=== PATIENT | male | born 1940 | race Caucasian/White ===

== ENCOUNTER 2017-09-12 14:11 | Inpatient (IN) | payer MEDICARE, OTHER, SELFPAY ==
[2017-09-12] VITALS (9 sets, daily range): BP systolic 105–151; BP diastolic 63–74; PULSE 69–96; RESP 14–23; TEMP 36.7–37.7; O2SAT 93–96; BMI 37.9; BMI 37.5; BMI 37.6
--- NOTE | 2017-09-12 14:54 | EKG12_ITS ---
Test Reason : FEVER Blood Pressure : / mmHG Vent. Rate : 097 BPM Atrial Rate : 097 BPM P-R Int : 148 ms QRS Dur : 098 ms QT Int : 330 ms P-R-T Axes : 062 -60 052 degrees QTc Int : 419 ms Normal sinus rhythm Left axis deviation Abnormal ECG Confirmed by MADDIE EVANS, ROBBIN ([id number]), acquisition editor CORI MARLOW ([id number]) on 09/15/2017 3:52:23 PM Referred By: MARTITA Confirmed By:ROBBIN PERKINS MD
--- NOTE | 2017-09-12 15:07 | ED.DCSUM_ITS ---
- ER Visit Summary Date of Service: 09/12/17 Chief Complaint: Fever History of Present Illness: The patient is a 77 M resents to the emergency department with fever. Patient symptoms began today. He is down here visiting family. The patient lives in [place]. He was at lunch and began to have with the family described as tremors. He did appear to be Reiger's from his fever. He denies any symptoms. He said no cough, abdominal pain, vision change , dysuria. He has had some myalgias and arthralgias. Family states that he has been outside working for the past 2 days. He did get mosquito bites but no other exposures. Patient is otherwise healthy. He does have a history of hypertension and BPH, but is on no anticoagulants. Has been compliant with his medications. He denies any other symptoms. Physical Examination: Vital signs reviewed General: Well-nourished, well-developed Head: Normocephalic, atraumatic Eyes: Pupils equal and reactive, extraocular muscles intact Neck, supple, no lymphadenopathy Heart: Regular rate and rhythm Respiratory: No distress, clear bilaterally Abdomen: Soft, nontender, nondistended, no peritoneal signs Back: Nontender Extremities: Nontender, no edema, no cords Skin: Normal color no rash Neuro: Alert and oriented, no focal or lateralizing deficits Test Results: [] Emergency Department Course and Treatment: The patient presents to the emergency department with a fever. He was also hypoxic. The patient had a pulse ox of 88%. He really no focal change in lung sounds. I did obtain a sepsis workup. Patient has no significant leukocytosis. However, he does have an elevated lactate. His EKG shows sinus rhythm without ischemic change. With his normal chest x-ray and hypoxia, I did obtain a CT of his chest. There is no large infiltrate. I am concerned that the patient has underlying infection. He is covered with IV Levaquin. Blood cultures were obtained. Given his hypoxia and lactic acidosis, along with his fever the patient does likely have sepsis. I do feel that he will require admission for IV hydration and continued antibiotic coverage. Patient was discussed with the hospitalist. Treatment Plan: [] Disposition: Admission Impression:. Sepsis 2. Hypoxia This note was generated with amBXation software. It may contain incorrect words, spelling, and punctuation that were not noted in review of the chart prior to signing ED Disposition - Plan for ED Patient: Chief Complaint: General Illness Referrals: [facility] Doctor,Out of [Primary Care Provider] -
[2017-09-12 15:10] LABS: Bacteria 0 SEEN /hpf (None Seen); Mucous, Urine 0 SEEN /hpf (<or=2+)
[2017-09-12 15:17] LABS: Color, Urine Yellow (Yellow); Glucose, Dipstick Normal (Normal); Ketone-Dipstick 5 mg/dl (Negative); Leukocyte Esterase-Dipstick 25 /ul (Negative); Nitrite-Dipstick Negative (Negative); Occult Blood-Urine Negative /ul (Negative); Protein-Dipstick Negative (Negative); Urine Bilirubin Dipstick Negative (Negative); Urine Clarity Clear (Clear); Urine Urobilinogen Normal (Normal)
[2017-09-12] MEDS: 0.9% Normal Saline 1,000 ML 1000 ML IV (15:22)
[2017-09-12] MEDS: Acetaminophen 500 MG Tablet 1000 MG PO (15:26)
--- NOTE | 2017-09-12 15:45 | RAD_ITS ---
STUDY: X-RAY CHEST REASON FOR EXAM: Male, 77 years old. Cough TECHNIQUE: Frontal and lateral views of the chest COMPARISON: None. FINDINGS: The lungs are clear. There are no pleural effusions. There is no pneumothorax. The heart is normal in size. There are degenerative changes noted in the spine. RAD/Chest PA and Lateral IMPRESSION: No acute thoracic pathology. Electronically Signed: Mendoza Alarcon, at 16:07 EDT Tel , Service support ,
[2017-09-12 15:47] LABS: Absolute Lymphocyte Count 0.39 X10^3/ul (0.83-4.51); Absolute Neutrophil Count 5.2 X10^3/uL (2.0-7.7); Basophil# 0.03 X10^3/uL; Basophil% 0.5 % (0-1); Eosinophil# 0.08 X10^3/uL; Eosinophils% 1.4 % (0-5); Hematocrit 40.7 % (40-54); Hemoglobin 13.6 g/dl (13.0-16.5); Lymphocyte # 0.39 X10^3/ul (4.0); Lymphocyte % 6.6 % (19-41); Mean Corp Hgb Conc 33.4 g/gl (32-36); Mean Corpuscular Hgb 29.9 pg (27.0-32.0); Mean Corpuscular Volume 89.5 fL (80-94); Monocyte# 0.17 X10^3/uL; Monocyte% 2.9 % (0-10); Neutrophil # 5.21 X10^3/uL (2.7-7.7); Neutrophil % 88.4 % (47-70); Platelet Count 168 K/mm3 (150-450); RBC Distribution Width CV 14.6 % (11.6-14.6); Red Blood Count 4.55 M/mm3 (4.6-6.2); White Blood Count 5.9 K/mm3 (4.4-11.0)
[2017-09-12 15:49] LABS: Red Blood Cells-Urine 0-5 SEEN /hpf (0-5); Squamous Epithelial Cells - UA 0-5 SEEN /hpf (0-5); White Blood Cells 0-5 SEEN /hpf (0-5)
[2017-09-12 15:53] LABS: Albumin, Serum 3.8 g/dL (3.2-5.0); BUN 26 mg/dL (7-18); BUN/Creat Ratio 18.1 RATIO (10-20); Creatinine, Serum 1.44 mg/dL (0.70-1.30); EST Glomerular Filtration Rate 51 mL/min (>60); Est Glom Filt Rate - Afr Amer 61 mL/min (>60); Estimated Creatinine Clearance 40.16 ml/min; Globulin 3.6 g/dL (2.2-4.2); Glucose 134 mg/dL (74-106); Protein, Total 7.4 g/dL (6.4-8.2)
[2017-09-12 15:54] LABS: ALB/GLOB Ratio 1.1 RATIO (0.9-2.4); AST(SGOT) 36 U/L (15-37); Alanine Aminotransfer ALT/SGPT 58 U/L (16-61); Alkaline Phosphatase 54 U/L (45-117); Anion Gap 8 (5-15); Calcium,Total 8.6 mg/dL (8.5-10.1); Chloride 107 mmol/L (98-107); Potassium 4.1 mmol/L (3.5-5.1); Sodium Level 140 mmol/L (136-145)
[2017-09-12 15:56] LABS: Differential Indicated SCAN CRITERIA MET; POSITIVE COUNT NO; POSITIVE DIFFERENTIAL YES; POSITIVE MORPHOLOGY NO
--- NOTE | 2017-09-12 16:15 | CT_ITS ---
STUDY: CT CHEST WITH CONTRAST REASON FOR EXAM: Male, 77 years old. Cough fever RADIATION DOSAGE (If Supplied By Facility): CTDIvol = ( 15.06 ) mGy, DLP = ( 745.11 ) mGycm TECHNIQUE: Transaxial imaging was performed following intravenous administration of 100 ml of Isovue 300 contrast material. Individualized dose optimization techniques were used for this CT. COMPARISON: None. FINDINGS: There is hyperinflation of the lungs consistent with chronic obstructive lung disease (COPD). There is mild bilateral lower lobe atelectasis. No infiltrate. There is no demonstrated pleural abnormality. Normal heart and pericardium. There is heterogeneous enhancement of the thyroid gland. Normal hilar regions. Normal enhanced pulmonary arteries. The exam is not a pulmonary embolism study. There is atherosclerotic calcification of the aortic arch with tortuosity and elongation of the aortic arch and descending thoracic aorta. There are multi-level degenerative changes of the thoracic spine. There is fatty infiltration of the liver. There is a small hiatal hernia. There is colonic diverticulosis. CT/Chest WITH Contrast IMPRESSION: There is chronic obstructive pulmonary disease. There is heterogeneous enhancement of the thyroid gland. Electronically Signed: Key Jade MD at 16:52 EDT , Service support ,
[2017-09-12 16:19] LABS: Lactic Acid 2.3 mmol/L (0.4-2.0)
[2017-09-12 16:27] LABS: Differential Comment SCANNED
[2017-09-12] MEDS: levoFLOXacin IV 750 MG/150 ML BAG 100 MG IV (16:43)
--- NOTE | 2017-09-12 18:04 | HP.PCM_ITS ---
Problem List (1) BPH (benign prostatic hyperplasia) Status: Chronic (2) HTN (hypertension) Status: Chronic (3) Arrhythmia Status: Chronic (4) GERD (gastroesophageal reflux disease) Status: Acute History of Present Illness Date of Admission: 09/12/17 Chief Complaint: Fever and shakes This is a 77 M past medical history of BPH, essential hypertension, ELIOT was admitted to the emergency room due to fever shakes. He is visiting family from the [facility] area. He had lites today with family and they started having fever and had shakes. Continue emergency room for evaluation. he was noted to be hypoxic, he was suspected of having an infection, chest x-ray and urinalysis were normal, a CT scan was also obtained that showed no evidence of consolidation, pleural effusion or congestion. The patient also reported abdominal discomfort this morning, he felt he had to vomit, he denied any diarrhea or constipation. His Lactate was mildly elevated at 2.3, he was placed on supplemental oxygen and given a dose of Levaquin we are placing him in the hospital for further management. r Past Medical History Past Medical History (Chronic Problems): Chronic Problems BPH (benign prostatic hyperplasia) (Chronic) HTN (hypertension) (Chronic) Arrhythmia (Chronic) Allergies bee pollen Allergy (Verified 09/12/17 14:14) Anaphylaxis Home Medications: Ambulatory Orders Medication Instructions Recorded Aspirin [Aspirin, Baby] 81 mg PO DAILY@0800 09/12/17 Doxazosin Mesylate [Cardura] 2 mg PO DAILY 09/12/17 Escitalopram Oxalate [Lexapro] 10 mg PO DAILY 09/12/17 Finasteride [Proscar] 5 mg PO DAILY 09/12/17 Metoprolol Tartrate [Lopressor 12.5 mg PO BID 09/12/17 (Beta Reginald)] Niacinamide [Niacin] 1,000 mg PO DAILY 09/12/17 Olmesartan Medoxomil [Benicar] 40 mg PO DAILY 09/12/17 Omeprazole [Omeprazole] 20 mg PO DAILY 09/12/17 Smoking Status: Former smoker Review of Systems Comment: All Systems were reviewed with pertinent positives mentioned in the HPI above. VTE Information - Inpt Only VTE Present on Admission: No VTE Mechan Device Prophylaxis: SCD's VTE Pharm Prophylaxis ordered?: Yes Patient Problems: Active and Suspected Problems GERD (gastroesophageal reflux disease) (Acute) - Physical Exam Vital Signs Temp Pulse Resp BP Pulse Ox 99.8 F H 91 18 123/63 H 95 09/12/17 16:55 09/12/17 16:55 09/12/17 16:55 09/12/17 16:55 09/12/17 16:55 Oxygen Flow Rate (L/min) 2 Oxygen Delivery Method Nasal Cannula Weight: 109.9 kg Body Mass Index (BMI) 37.9 Laboratory Tests Past 24 Hrs 09/12/17 09/12/17 09/12/17 15:00 15:15 15:15 WBC 5.9 RBC 4.55 L Hgb 13.6 Hct 40.7 MCV 89.5 MCH 29.9 MCHC 33.4 RDW 14.6 RDW Differential 48.0 H Plt Count 168 MPV 10.0 Immature Gran % (Auto) 0.200 Neut % (Auto) 88.4 H Lymph % (Auto) 6.6 L Cochran % (Auto) 2.9 Eos % (Auto) 1.4 Baso % (Auto) 0.5 Absolute Neuts (auto) 5.2 Absolute Lymphs (auto) 0.39 L Total Counted Not Reportable Differential Comment SCANNED Sodium 140 Potassium 4.1 Chloride 107 Carbon Dioxide 25.0 Anion Gap 8 BUN 26 H Creatinine 1.44 H Estim Creat Clear Calc 40.16 Est GFR (MDRD) Af Amer 61 Est GFR (MDRD) Non-Af 51 L BUN/Creatinine Ratio 18.1 Glucose 134 H Lactic Acid Calcium 8.6 Total Bilirubin 1.20 H AST 36 ALT 58 Alkaline Phosphatase 54 Total Protein 7.4 Albumin 3.8 Globulin 3.6 Albumin/Globulin Ratio 1.1 Urine Color Yellow Urine Clarity Clear Urine pH 5.0 Ur Specific Converse 1.020 Urine Protein Negative Urine Glucose (UA) Normal Urine Ketones 5 H Urine Occult Blood Negative Urine Nitrite Negative Urine Bilirubin Negative Urine Urobilinogen Normal Ur Leukocyte Esterase 25 H Urine RBC 0-5 SEEN Urine WBC 0-5 SEEN Ur Squamous Epith Cells 0-5 SEEN Urine Bacteria 0 SEEN Urine Mucus 0 SEEN 09/12/17 15:15 WBC RBC Hgb Hct MCV MCH MCHC RDW RDW Differential Plt Count MPV Immature Gran % (Auto) Neut % (Auto) Lymph % (Auto) Cochran % (Auto) Eos % (Auto) Baso % (Auto) Absolute Neuts (auto) Absolute Lymphs (auto) Total Counted Differential Comment Sodium Potassium Chloride Carbon Dioxide Anion Gap BUN Creatinine Estim Creat Clear Calc Est GFR (MDRD) Af Amer Est GFR (MDRD) Non-Af BUN/Creatinine Ratio Glucose Lactic Acid 2.3 H Calcium Total Bilirubin AST ALT Alkaline Phosphatase Total Protein Albumin Globulin Albumin/Globulin Ratio Urine Color Urine Clarity Urine pH Ur Specific Converse Urine Protein Urine Glucose (UA) Urine Ketones Urine Occult Blood Urine Nitrite Urine Bilirubin Urine Urobilinogen Ur Leukocyte Esterase Urine RBC Urine WBC Ur Squamous Epith Cells Urine Bacteria Urine Mucus Assessment/Plan All Active Problems GERD (gastroesophageal reflux disease) (Acute) 1. Fever of unclear etiology; blood cultures have been sent, the patient received empiric antibiotic with Levaquin in the emergency room. We will continue to monitor. 2. Acute Respiratory failure with hypoxia; likely due to acute bronchitis with bronchospasm. Would continue on bronchodilator therapy ,antibiotics and oral steroids 3. Renal insufficiency, chronicity unknown, the patient denies chronic kidney disease, I would treat this as acute kidney injury with IV hydration and repeat renal parameters in a.m. 4. Mild lactic acidosis; I did not feel this patient has sepsis, this is most likely due to hypoxia, we will repeat lactate level in 4 hours. 5. BPH; we will continue his home medications as they are. 6. ELIOT; continue nightly CPAP 7. History of cardiac 'arrhythmia'; he is on beta blockers 8. DVT prophylaxis with Lovenox Code Visit Inpatient E&M: 26505 Init Hosp L3
[2017-09-12] MEDS: 0.9% Normal Saline 1,000 ML 75 ML IV (19:52)
[2017-09-12 19:58] LABS: Reflex Lactate? Y
[2017-09-13] VITALS (13 sets, daily range): BP systolic 124–159; BP diastolic 59–87; PULSE 63–75; RESP 14–16; TEMP 36.7–37.4; O2SAT 93–97
[2017-09-13] MEDS: Piperacil/Tazobactam 3.375 GM/50 ML ML IV ×4 (01:08→22:11)
--- NOTE | 2017-09-13 04:23 | PCM.RX.CS ---
Consult Pharmacy has been consulted to manage selected antiobiotic: Vancomycin Type of Consult: New start Suspected Infection: Other Prior Doses of Antibiotics Received/Current Regimen: Medications Vancomycin HCl 1,500 mg/ (Sodium Chloride) 530 mls @ 250 mls/hr IV Q24H MARGARITO Vancomycin HCl 1,750 mg/ (Sodium Chloride) 535 mls @ 260 mls/hr IV X1 ONE Stop: 09/13/17 05:03 Last Admin: 09/13/17 03:50 Dose: 260 mls/hr Labs: Sodium 140 mmol/L (136-145) 09/12/17 15:15 Potassium 4.1 mmol/L (3.5-5.1) 09/12/17 15:15 Chloride 107 mmol/L (98-107) 09/12/17 15:15 Carbon Dioxide 25.0 mmol/L (21.0-32.0) 09/12/17 15:15 Anion Gap 8 (5-15) 09/12/17 15:15 BUN 26 mg/dL (7-18) H 09/12/17 15:15 Creatinine 1.44 mg/dL (0.70-1.30) H 09/12/17 15:15 Est GFR (MDRD) Af Amer 61 mL/min (>60) 09/12/17 15:15 Est GFR (MDRD) Non-Af 51 mL/min (>60) L 09/12/17 15:15 BUN/Creatinine Ratio 18.1 RATIO (10-20) 09/12/17 15:15 Glucose 134 mg/dL (74-106) H 09/12/17 15:15 Weight used for dosin.9 kg Estimated Creatinine Clearance: 40 Goal Trough: 10-15 mcg/mL Pharmacy Plan for Drug Dosing: Pharmacy Service will continue to monitor and adjust dosing as required. Follow-Up Labs: Trough Vancomycin Labs to be done on [date and time ordered]: 09/15/17 @9771
[2017-09-13 05:45] LABS: Absolute Lymphocyte Count 0.89 X10^3/ul (0.83-4.51); Absolute Neutrophil Count 4.8 X10^3/uL (2.0-7.7); Basophil# 0.02 X10^3/uL; Basophil% 0.3 % (0-1); Eosinophil# 0.08 X10^3/uL; Eosinophils% 1.2 % (0-5); Hematocrit 36.9 % (40-54); Lymphocyte # 0.89 X10^3/ul (4.0); Lymphocyte % 13.3 % (19-41); Mean Corp Hgb Conc 32.5 g/gl (32-36); Mean Corpuscular Hgb 28.9 pg (27.0-32.0); Mean Corpuscular Volume 88.9 fL (80-94); Mean Platelet Vol. 10.2 fl (6.2-12.0); Monocyte# 0.85 X10^3/uL; Monocyte% 12.7 % (0-10); Neutrophil # 4.84 X10^3/uL (2.7-7.7); Neutrophil % 72.5 % (47-70); Platelet Count 133 K/mm3 (150-450); RBC Distribution Width CV 14.9 % (11.6-14.6); RBC Distribution Width SD 48.4 fl (35.1-43.9); Red Blood Count 4.15 M/mm3 (4.6-6.2); White Blood Count 6.7 K/mm3 (4.4-11.0)
[2017-09-13] MEDS: 0.9% Normal Saline 1,000 ML 75 ML IV ×2 (05:45→22:20)
--- NOTE | 2017-09-13 06:00 | ECHOD_ITS ---
Reason For Study: ARRHYTHMIA Procedure This was a 2D Doppler, Color Flow transthoracic echocardiogram. The study was technically difficult. Exam performed portable in patient room. Left Ventricle Normal LV size. Mild concentric left ventricular hypertrophy. Left ventricular systolic function is normal. The estimated ejection fraction is 55 %. Transmitral diastolic flow velocities suggest mild (stage 1) diastolic dysfunction (reversed pattern). No regional wall motion abnormalities noted. Tricuspid Valve Normal tricuspid valve. Mild (1+) tricuspid valve insufficiency. Pulmonary artery systolic pressure is 44 mmHg. Pulmonic Valve Normal pulmonic valve. Great Vessels Mildly dilated aortic root. The pulmonary artery is normal size. Normal inferior vena cava. Pericardium/Pleural No pericardial effusion. MMode/2D Measurements & Calculations LVIDd: 5.2 cm IVSd: 1.2 cm LVOT diam: 2.0 cm LVIDs: 3.9 cm LVPWd: 1.2 cm LVOT area: 3.3 cm2 FS: 25.2 % Ao root diam: 4.0 cm LAV(MOD-bp): 53.3 ml LA A4 area: 15.2 cm2 ACS: 1.1 cm LAV(MOD-bp) Indexed: 24.4 ml/m2 LAV(MOD-sp2): 65.9 ml LAV(MOD-sp4): 35.8 ml RA A4 area: 15.0 cm2 Time Measurements MV dec time: 0.26 sec Doppler Measurements & Calculations MV E max luis e: 77.8 cm/sec Lat Peak E' Luis E: 9.9 cm/sec Med Peak E' Luis E: 5.0 cm/sec MV A max luis e: 93.2 cm/sec E/E' lat: 7.9 E/E' med: 15.4 MV E/A: 0.83 MV V2 max: 112.7 cm/sec MV P1/2t max luis e: 99.2 cm/sec Ao V2 max: 231.8 cm/sec MV max P.1 mmHg MV P1/2t: 103.7 msec Ao max P.5 mmHg MV V2 mean: 57.8 cm/sec MV dec slope: 280.1 cm/sec2 Ao V2 mean: 154.4 cm/sec MV mean P.5 mmHg MVA(P1/2t): 2.1 cm2 Ao mean P.8 mmHg MV V2 VTI: 32.3 cm Ao V2 VTI: 51.5 cm MVA(VTI): 1.9 cm2 SARAH(I,D): 1.2 cm2 SARAH(V,D): 1.1 cm2 LV V1 max: 78.1 cm/sec SV(LVOT): 60.9 ml PA V2 max: 83.5 cm/sec LV V1 max P.4 mmHg LV V1 mean P.3 mmHg LV V1 mean: 53.3 cm/sec LV V1 VTI: 18.7 cm TR max luis e: 313.7 cm/sec TR max P.4 mmHg Interpretation Summary Normal LV size. Mild concentric left ventricular hypertrophy. Left ventricular systolic function is normal. The estimated ejection fraction is 55 %. Transmitral diastolic flow velocities suggest mild (stage 1) diastolic dysfunction (reversed pattern). Mildly dilated aortic root. Pulmonary artery systolic pressure is 44 mmHg. Ordering Physician: OSCAR PELAEZ Performed By: Vin Yip RCS
[2017-09-13 06:25] LABS: POSITIVE COUNT NO; POSITIVE DIFFERENTIAL NO; POSITIVE MORPHOLOGY NO
--- NOTE | 2017-09-13 09:28 | PN_ITS ---
Patient Problems: Active and Suspected Problems GERD (gastroesophageal reflux disease) (Acute) Subjective: This 77-year-old gentleman who presented with fevers. Has been admitted to a monitored bed where he is currently undergoing evaluation cultures so far positive for strep pneumo in the bladder Objective: GENERAL: cooperative HEENT: Clear conjunctiva, NECK; supple, normal thyroid, CHEST: Diminished to auscultation bilaterally, HEART: Regular S1 S2, no audible murmurs ABDOMEN: soft, non-tender, normoactive bowel sounds, RECTAL: deferred EXTREMITIES: No edema, no clubbing, no cyanosis. 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 SKIN: No Rash Vitals/I&O's: Vital Signs Temp Pulse Resp BP Pulse Ox 98.2 F 65 16 149/74 H 93 09/13/17 08:33 09/13/17 08:33 09/13/17 08:33 09/13/17 08:33 09/13/17 08:33 Oxygen Flow Rate (L/min) 94 Oxygen Delivery Method Room Air Weight: 108.9 kg Body Mass Index (BMI) 37.5 Intake and Output for Last 24 Hours 09/11/17 09/12/17 09/13/17 23:59 23:59 23:59 Intake Total 685 / 685 913.8 / 913.8 Balance 685 / 685 913.8 / 913.8 Laboratory Results 09/12/17 20:55: Lactic Acid 2.0 09/13/17 05:00: WBC 6.7, RBC 4.15 L, Hgb 12.0 L, Hct 36.9 L, MCV 88.9, MCH 28.9 , MCHC 32.5, RDW 14.9 H, RDW Differential 48.4 H, Plt Count 133 L, MPV 10.2, Immature Gran % (Auto) 0.000, Neut % (Auto) 72.5 H, Lymph % (Auto) 13.3 L, Bowie % (Auto) 12.7 H, Eos % (Auto) 1.2, Baso % (Auto) 0.3, Absolute Neuts (auto) 4.8 , Absolute Lymphs (auto) 0.89, Total Counted Not Reportable Current Medications Aspirin (Aspirin, Baby) 81 mg PO DAILY@0800 [facility] Doxazosin Mesylate (Cardura) 2 mg PO QHS [facility] Last Admin: 09/12/17 22:32 Dose: Not Given Enoxaparin Sodium (Lovenox) 40 mg SC DAILY [facility] Escitalopram Oxalate (Lexapro) 10 mg PO DAILY [facility] Finasteride (Proscar) 5 mg PO DAILY [facility] Sodium Chloride () 1,000 mls @ 75 mls/hr IV .[id number] [facility] Stop: 09/13/17 23:59 Last Admin: 09/13/17 05:45 Dose: 75 mls/hr Piperacillin Sod/Tazobactam Sod (Zosyn) 3.375 gm in 50 mls @ 12.5 mls/hr IV Q8 [facility] Last Admin: 09/13/17 05:45 Dose: 12.5 mls/hr Vancomycin HCl 1,500 mg/ (Sodium Chloride) 530 mls @ 250 mls/hr IV Q24H [facility] Losartan Potassium (Cozaar) 100 mg PO DAILY [facility] Metoprolol Tartrate (Lopressor (Beta Reginald)) 12.5 mg PO BID [facility] Last Admin: 09/12/17 22:33 Dose: Not Given Niacin (Niaspan) 1,000 mg PO DAILY [facility] Pantoprazole Sodium (Protonix) 20 mg PO DAILY [facility] Sodium Chloride () 5 - 30 ml IV UD PRN PRN Reason: SALINE FLUSH Medical Necessity - Tobacco Use Smoking Status: Former smoker Assessment/Plan All Active Problems GERD (gastroesophageal reflux disease) (Acute) This 77-year-old gentleman who presented with fevers. Has been admitted to a monitored bed where he is currently undergoing evaluation cultures so far positive for strep pneumo in the bladder 1. Bacteremia? Lung source patient grew strep pneumo in the blood as well as gram-positive and gram-negative rods currently on broad-spectrum antibiotic therapy with Levaquin. Ultrasound of gallbladder ordered for subsequent evaluation with consultation placed infectious disease 2. Acute hypoxic respiratory failure secondary to bronchitis in addition to above antibiotics patient was placed on bronchodilator therapy as well as oral steroids 3. Acute kidney injury secondary to dehydration on fluids resolved 4. Obstructive sleep apnea patient is on CPAP at night 5. Hypertension; did continue patient home medications with plans to adjust doses if needed 6. BPH patient is on Proscar 7. DVT prophylaxis on Lovenox Microbiology 09/12/17 16:10 Blood Culture (Wb) - Left Hand Bacteria Detection (PCR) - Preliminary Strep not Strep pneumo 09/12/17 16:10 Blood Culture (Wb) - Left Hand Blood Culture - Preliminary 09/12/17 15:15 Blood Culture (Wb) - Anticubital Left Blood Culture - Preliminary Clinical Impression(s) from Imaging Studies Chest X-Ray 09/12/17 15:45 IMPRESSION: No acute thoracic pathology. Electronically Signed: Mendoza Alarcon, at 16:07 EDT Tel , Service support , Chest CT 09/12/17 16:15 IMPRESSION: There is chronic obstructive pulmonary disease. There is heterogeneous enhancement of the thyroid gland. Electronically Signed: Key Jade MD at 16:52 EDT , Service support , Gallbladder Ultrasound 09/13/17 11:00 IMPRESSION: Fatty infiltration of the liver. Small hepatic cyst. Multiple gallstones and sludge in the gallbladder lumen. Electronically Signed: Galileo Kaba MD at 11:37 EDT Tel [phone], Service support , Active Medications Aspirin (Aspirin, Baby) 81 mg PO DAILY@0800 [facility] Last Admin: 09/13/17 11:54 Dose: 81 mg Doxazosin Mesylate (Cardura) 2 mg PO QHS [facility] Last Admin: 09/12/17 22:32 Dose: Not Given Enoxaparin Sodium (Lovenox) 40 mg SC DAILY [facility] Last Admin: 09/13/17 11:56 Dose: Not Given Escitalopram Oxalate (Lexapro) 10 mg PO DAILY [facility] Last Admin: 09/13/17 11:54 Dose: 10 mg Finasteride (Proscar) 5 mg PO DAILY [facility] Last Admin: 09/13/17 11:56 Dose: 5 mg Sodium Chloride () 1,000 mls @ 75 mls/hr IV .[id number] [facility] Stop: 09/13/17 23:59 Last Admin: 09/13/17 05:45 Dose: 75 mls/hr Piperacillin Sod/Tazobactam Sod (Zosyn) 3.375 gm in 50 mls @ 12.5 mls/hr IV Q8 [facility] Last Admin: 09/13/17 05:45 Dose: 12.5 mls/hr Vancomycin HCl 1,500 mg/ (Sodium Chloride) 530 mls @ 250 mls/hr IV Q24H [facility] Losartan Potassium (Cozaar) 100 mg PO DAILY [facility] Last Admin: 09/13/17 11:54 Dose: 100 mg Metoprolol Tartrate (Lopressor (Beta Reginald)) 12.5 mg PO BID [facility] Last Admin: 09/13/17 11:55 Dose: 12.5 mg Niacin (Niaspan) 1,000 mg PO DAILY [facility] Last Admin: 09/13/17 11:56 Dose: 1,000 mg Pantoprazole Sodium (Protonix) 20 mg PO DAILY [facility] Last Admin: 09/13/17 11:57 Dose: 20 mg Sodium Chloride () 5 - 30 ml IV UD PRN PRN Reason: SALINE FLUSH Code Visit Inpatient E&M: 35100 Subs Hosp L3
[2017-09-13 09:53] LABS: Anion Gap 6 (5-15); BUN 22 mg/dL (7-18); BUN/Creat Ratio 18.8 RATIO (10-20); Calcium,Total 7.9 mg/dL (8.5-10.1); Chloride 111 mmol/L (98-107); Creatinine, Serum 1.17 mg/dL (0.70-1.30); EST Glomerular Filtration Rate 64 mL/min (>60); Est Glom Filt Rate - Afr Amer 78 mL/min (>60); Estimated Creatinine Clearance 49.43 ml/min; Glucose 107 mg/dL (74-106); Potassium 3.7 mmol/L (3.5-5.1); Sodium Level 141 mmol/L (136-145)
--- NOTE | 2017-09-13 10:23 | NURSING ---
Addendum entered by Chris García 09/13/17 10:36: Echo in progress; pt to gallbladder US after echo Original Note: Gallbladder US in progress at bedside
--- NOTE | 2017-09-13 11:00 | US_ITS ---
STUDY: ABDOMINAL ULTRASOUND - RIGHT UPPER QUADRANT REASON FOR VISIT: Male, 77 years old. Right upper quadrant pain. TECHNIQUE: Ultrasound evaluation of the right upper quadrant was performed with real-time and static miramonets-scale imaging. TECHNICAL QUALITY: Adequate. COMPARISON: None. FINDINGS: Liver: The liver is enlarged and measures 19.6 cm. There is increased echogenicity consistent with fatty infiltration. Focal area of fatty sparing is seen in the periportal region. The bile ducts are within normal limits. There is hepatic color flow. The direction of portal flow is hepatopetal. There is a 2.7 cm x 2 cm x 2 cm cyst in the right lobe of the liver. Gallbladder: Normal distended gallbladder. The gallbladder wall measures 2.5 mm. There is a negative sonographic Russell's sign. There is no pericholecystic fluid. There are multiple echogenic structures within the gallbladder, consistent with multiple gallstones. A small amount of sludge is seen in the gallbladder lumen. Common Bile Duct (C.B.D.): The common bile duct measures 2.8 mm. Pancreas: Normal size of the head, body and tail of the pancreas. There is normal echogenicity of the pancreas. There is no demonstrated pancreatic mass or cyst. Right Kidney: Normal size of the right kidney. The right kidney measures 11.4 cm x 5.2 cm x 6.7 cm. Normal renal cortex. The right cortex measures 1.4 cm. There is no demonstrated renal mass or cyst. There is no right hydronephrosis. US/Gallbladder IMPRESSION: Fatty infiltration of the liver. Small hepatic cyst. Multiple gallstones and sludge in the gallbladder lumen. Electronically Signed: Galileo Kaba MD at 11:37 EDT Tel [phone], Service support ,
[2017-09-13] MEDS: Aspirin 81 MG TAB.CHEW PO (11:54)
[2017-09-13] MEDS: Losartan Potassium 100 MG Tablet PO (11:54)
[2017-09-13] MEDS: Escitalopram Oxalate 10 MG Tablet PO (11:54)
[2017-09-13] MEDS: Metoprolol Tartrate 25 MG Tablet 12.5 MG PO ×2 (11:55→22:09)
[2017-09-13] MEDS: Finasteride 5 MG Tablet PO (11:56)
[2017-09-13] MEDS: Pantoprazole Sodium 20 MG Tablet PO (11:57)
--- NOTE | 2017-09-13 14:15 | CASEMGMT ---
See RN CM Assessment Link. Pt is visiting from [facility]. Daughter is in town. PT states he is independent, drives. Plans to return home on discharge. Pt is on RA presently. No needs identified. Zay GARY RN ACM
--- NOTE | 2017-09-13 15:36 | CT_ITS ---
STUDY: CT ABDOMEN AND PELVIS WITH CONTRAST REASON FOR EXAM: Male, 77 years old. Abdominal pain and fever tremors RADIATION DOSAGE (If Supplied By Facility): CTDIvol = ( 23.52 ) mGy, DLP = ( 1337.82 ) mGycm TECHNIQUE: Transaxial images were obtained from the dome of the diaphragm to the symphysis pubis with oral contrast. 100ML ml of Isovue 300 contrast was administered. Sagittal and coronal images were reconstructed. Individualized dose optimization techniques were used for this CT. COMPARISON: Ultrasound abdomen September 13, 2017 FINDINGS: The visualized lung bases are unremarkable. There is mild cardiac enlargement. There is calcification in the base of the aorta. The liver appears fatty infiltrated borderline enlarged. Within the periphery of the right hepatic lobe there is a well-circumscribed low attenuating mass measuring 1.5 x 1.9 cm with Hounsfield units in the range of simple fluid. There are layering punctate stones within the gallbladder. The common duct is proximal to the pancreas measures 6 mm. This is within normal limits for patient's age. Normal spleen. Normal pancreas. Normal bilateral adrenal glands. Normal right kidney. Normal left kidney. There is a hiatal hernia measuring 3.4 x 3.3 cm. Normal small intestine. There is contrast within the large bowel. There is a relative decompressed appearance of the large bowel. There are numerous diverticula present within the descending colon. There is substantial tortuosity demonstrated. There is no significant surrounding inflammation. There is bilateral trace thickening of the paracolic gutters or trace fluid. The appendix is visualized and appears normal. The aorta is partially calcified. There is calcification of the takeoff of the bilateral renal arteries. Normal inferior vena cava. Normal retroperitoneum. The bladder is distended. There is a hyperdense appearance of the contents of the bladder which may be related to early contrast enhancement. The prostate is markedly enlarged and lobulated. The prostate pushes into the base of the bladder. The prostate measures 8.4 x 6.1 x 7.0 cm. There is a small umbilical hernia containing fat. There are diffuse degenerative changes of the visualized lumbar spine. CT/Abdomen/Pelvis WITH Contrast IMPRESSION: There is a markedly enlarged appearance of the prostate measuring 8.4 x 6.1 x 7.0 cm partially into the base of the bladder. There may be chronic outlet obstruction. The bladder is distended. Although there is been administration of contrast in the bladder may be showing early contrast enhancement there is a somewhat hyperdense appearance of the contents which could potentially represent underlying hemorrhage or infection. Recommend correlation with urinary laboratory values and appearance. Hepatic steatosis. Benign-appearing hepatic cysts. Extensive diverticulosis without definitive radiographic evidence of diverticulitis. Cholelithiasis., The common duct measures approximately 6 mm. Sonographic Russell's sign was described as negative. Potentially chronic cholecystitis could have this appearance. Small hiatal hernia. Electronically Signed: Lyndsey Baumann MD at 20:31 EDT Tel , Service support ,
--- NOTE | 2017-09-13 15:56 | CON.PCM_ITS ---
Problem List (1) Bacteremia Status: Acute Reason for Consult: bacteremia Consulted by: Dr. Andrade History of Present Illness: The patient is a 77 year old M with h/o diverticulosis who presented to ED 09/12 with sudden onset of fever, chills, shakes just after having lunch. Had been feeling fine recently except for brief episode of abd pain across his lower belly the night before. Had dental surgery about 11 days ago, but no infection seen, no abx given, no pain/swelling/drainage in mouth. Reports normal colonoscopy about 3 years ago with diverticulosis but no polyps seen. No blood in stool. No rash, no cough, no SOB, no new joint/back pain. Has been working in garden a lot and has gotten mosquito bites; no tick bites that he knows of. Lives in [facility]. No dysuria. Came to ED, given levaquin, bcx x2 with GNR and strep, so abx changed to vanc/zosyn. Feeling better, family at bedside. Full ROS performed and neg except as noted above. - Medical History Past Medical History (Chronic Problems): Chronic Problems BPH (benign prostatic hyperplasia) (Chronic) HTN (hypertension) (Chronic) Arrhythmia (Chronic) Allergies/Adverse Reactions: Allergies bee pollen Allergy (Verified 09/12/17 14:14) Anaphylaxis Home Medications: Ambulatory Orders Medication Instructions Recorded Aspirin [Aspirin, Baby] 81 mg PO DAILY@0800 09/12/17 Doxazosin Mesylate [Cardura] 2 mg PO DAILY 09/12/17 Escitalopram Oxalate [Lexapro] 5 mg PO DAILY 09/12/17 Finasteride [Proscar] 5 mg PO DAILY 09/12/17 Glucosamine/MSM/Chondroitin A 1 each PO DAILY 09/12/17 [Glucosamine Chondroit MSM Tab] Metoprolol Tartrate [Lopressor 12.5 mg PO BID 09/12/17 (Beta Reginald)] Niacinamide [Niacin] 1,000 mg PO DAILY 09/12/17 Olmesartan Medoxomil [Benicar] 40 mg PO DAILY 09/12/17 Omeprazole Magnesium [Prilosec Otc] 20 mg PO DAILY 09/12/17 - Social History SMOKING STATUS:: Never smoker Vital Signs Temp Pulse Resp BP Pulse Ox 99.3 F H 66 16 124/72 H 95 09/13/17 13:32 09/13/17 15:20 09/13/17 13:32 09/13/17 13:32 09/13/17 13:32 Oxygen Flow Rate (L/min) 94 Oxygen Delivery Method Room Air Weight: 108.9 kg Body Mass Index (BMI) 37.5 Laboratory Tests Past 24 Hrs 09/12/17 09/13/17 09/13/17 20:55 05:00 05:00 WBC 6.7 RBC 4.15 L Hgb 12.0 L Hct 36.9 L MCV 88.9 MCH 28.9 MCHC 32.5 RDW 14.9 H RDW Differential 48.4 H Plt Count 133 L MPV 10.2 Immature Gran % (Auto) 0.000 Neut % (Auto) 72.5 H Lymph % (Auto) 13.3 L [place] % (Auto) 12.7 H Eos % (Auto) 1.2 Baso % (Auto) 0.3 Absolute Neuts (auto) 4.8 Absolute Lymphs (auto) 0.89 Total Counted Not Reportable Sodium 141 Potassium 3.7 Chloride 111 H Carbon Dioxide 24.0 Anion Gap 6 BUN 22 H Creatinine 1.17 Estim Creat Clear Calc 49.43 Est GFR (MDRD) Af Amer 78 Est GFR (MDRD) Non-Af 64 BUN/Creatinine Ratio 18.8 Glucose 107 H Lactic Acid 2.0 Calcium 7.9 L - Other Studies Radiology: [] reviewed Other Studies: [] Route of nutrition/ use of supplements: [] Nutritional Intake: [] IV Site: [] Summers Catheter: [] - Physical Exam General: Alert, Oriented x3, Cooperative, No apparent distress HEENT: Atraumatic, PERRLA, EOMI Neck: Supple, No Nodes Lungs: Clear to auscultation, Normal air movement Cardiovascular: Regular rate, Regular Rhythm, No murmurs Abdomen: Bowel Sounds Present, Soft, Non Tender, Non-Distended Extremities: No edema Skin: No rashes, - - splinter hemorrhages on L 1st finger and R 1-3 fingers IV Site: Peripheral, without redness Musculoskeletal: No Tenderness to Palpation of Joints or Extremities, - - No spine tenderness Neurological: Cranial nerves II-XII grossly intact Psych/Mental Status: Normal Affect - Assessment/Plan Antibiotics: [] Assessment/Plan: [] Active and Suspected Problems GERD (gastroesophageal reflux disease) (Acute) Polymicrobial bacteremia causing lactic acidosis, shakes/chills - had episode of abd pain the night before. Given the bacteria seen, suspect GI source. Did have recent dental work, but area does not appear infected. Will repeat bcx and order CT abd/pelvis. TTE with no sign of veg, but splinter hemorrhages on both hands. He will need TERESA. Cont vanc/zosyn while further work-up pending. Thank you, will follow.
[2017-09-13] MEDS: Doxazosin 1 MG Tablet 2 MG PO (22:09)
[2017-09-14] VITALS (12 sets, daily range): BP systolic 135–153; BP diastolic 78–84; PULSE 60–66; RESP 16–18; TEMP 36.7–37.4; O2SAT 94–97; BMI 37.5
[2017-09-14] MEDS: Piperacil/Tazobactam 3.375 GM/50 ML ML IV ×3 (05:39→21:42)
--- NOTE | 2017-09-14 05:55 | ECHOTEE_ITS ---
Reason For Study: EMBOLI Medication TERESA probe passed with minimal difficulty. No complications were noted. Cetacaine Topical Sizerock given X3 orally. Versed 1 mg given slow IVP. Fentanyl 50 mcg given slow IVP. Performed a rapid injection of agitated mix of 9 cc saline and 1cc air to assess for atrial septal defect. Left Ventricle Normal LV size. Left ventricular systolic function is normal. The estimated ejection fraction is 55 %. No regional wall motion abnormalities noted. Right Ventricle Normal RV size. Normal systolic function. Atria Faintly positive agitated saline contrast study s/p Valsalva for a right to left interatrial shunt c/w a very small PFO. The left atrium is mildly enlarged. There is no sponatenous contrast in the left atrium. No thrombus is detected in the left atrial appendage. Normal right atrium. There is no sponatenous contrast in the right atrium. No obvious RA / appendage thrombus identified. 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 Mitral Valve There is no mitral annular calcification. Normal mitral valve. Moderate (2+) eccentric mitral valve insufficiency. Tricuspid Valve Normal tricuspid valve. Trivial tricuspid valve insufficiency. Aortic Valve Trisinus/trileaflet aortic valve. Mild diffuse aortic valve thickening. Mild focal aortic valve calcification. Pulmonic Valve The pulmonic valve is not well visualized. Trivial pulmonic valve insufficiency. Vessels Mild atherosclerosis of the aortic arch. Mild atherosclerosis of the descending aorta. Pericardium No pericardial effusion. Interpretation Summary Left ventricular systolic function is normal. The estimated ejection fraction is 55 %. The left atrium is mildly enlarged. There is no sponatenous contrast in the left atrium. No thrombus is detected in the left atrial appendage. 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 Moderate (2+) eccentric mitral valve insufficiency. Trivial tricuspid valve insufficiency. Mild diffuse aortic valve thickening. Mild focal aortic valve calcification. Trivial pulmonic valve insufficiency. Faintly positive agitated saline contrast study s/p Valsalva for a right to left interatrial shunt c/w a very small PFO. Mild atherosclerosis of the aortic arch. Mild atherosclerosis of the descending aorta. Ordering Physician: Jasson Andrade Performed By: Amelia Cox RDCS ??? Reason For Study: EMBOLI Interpretation Summary Left ventricular systolic function is normal. The estimated ejection fraction is 55 %. The left atrium is mildly enlarged. There is no sponatenous contrast in the left atrium. No thrombus is detected in the left atrial appendage. 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 Moderate (2+) eccentric mitral valve insufficiency. Trivial tricuspid valve insufficiency. Mild diffuse aortic valve thickening. Mild focal aortic valve calcification. Trivial pulmonic valve insufficiency. Faintly positive agitated saline contrast study s/p Valsalva for a right to left interatrial shunt c/w a very small PFO. Mild atherosclerosis of the aortic arch. Mild atherosclerosis of the descending aorta. Ordering Physician: Jasson Andrade Performed By: Amelia Cox RDCS
[2017-09-14 06:03] LABS: International Normalized Ratio 1.1; Partial Thromboplast Time 41.5 Seconds (24.1-36.2); Prothrombin Time (Protime)PT. 14.2 SECONDS (11.7-14.9)
[2017-09-14 06:09] LABS: Absolute Lymphocyte Count 1.32 X10^3/ul (0.83-4.51); Absolute Neutrophil Count 3.3 X10^3/uL (2.0-7.7); Basophil# 0.02 X10^3/uL; Basophil% 0.3 % (0-1); Eosinophil# 0.15 X10^3/uL; Eosinophils% 2.6 % (0-5); Hematocrit 36.6 % (40-54); Hemoglobin 11.9 g/dl (13.0-16.5); Lymphocyte # 1.32 X10^3/ul (4.0); Lymphocyte % 22.5 % (19-41); Mean Corp Hgb Conc 32.5 g/gl (32-36); Mean Corpuscular Hgb 29.2 pg (27.0-32.0); Mean Corpuscular Volume 89.7 fL (80-94); Mean Platelet Vol. 10.7 fl (6.2-12.0); Monocyte# 1.08 X10^3/uL; Monocyte% 18.4 % (0-10); Neutrophil # 3.29 X10^3/uL (2.7-7.7); Platelet Count 145 K/mm3 (150-450); RBC Distribution Width CV 14.8 % (11.6-14.6); RBC Distribution Width SD 48.2 fl (35.1-43.9); Red Blood Count 4.08 M/mm3 (4.6-6.2); White Blood Count 5.9 K/mm3 (4.4-11.0)
[2017-09-14 06:15] LABS: Anion Gap 10 (5-15); BUN 15 mg/dL (7-18); BUN/Creat Ratio 12.5 RATIO (10-20); Calcium,Total 7.9 mg/dL (8.5-10.1); Chloride 110 mmol/L (98-107); EST Glomerular Filtration Rate 62 mL/min (>60); Est Glom Filt Rate - Afr Amer 75 mL/min (>60); Glucose 108 mg/dL (74-106); Magnesium 2.1 mg/dL (1.6-2.6); POSITIVE COUNT NO; POSITIVE DIFFERENTIAL NO; POSITIVE MORPHOLOGY NO; Potassium 3.8 mmol/L (3.5-5.1); Sodium Level 143 mmol/L (136-145)
--- NOTE | 2017-09-14 09:00 | NURSING ---
pt back from TERESA vs taken no needs at this time.
[2017-09-14] MEDS: Losartan Potassium 100 MG Tablet PO (10:05)
[2017-09-14] MEDS: Aspirin 81 MG TAB.CHEW PO (10:05)
[2017-09-14] MEDS: Metoprolol Tartrate 25 MG Tablet 12.5 MG PO ×2 (10:06→21:38)
[2017-09-14] MEDS: Escitalopram Oxalate 10 MG Tablet PO (10:06)
[2017-09-14] MEDS: Pantoprazole Sodium 20 MG Tablet PO (10:08)
[2017-09-14] MEDS: Finasteride 5 MG Tablet PO (10:08)
--- NOTE | 2017-09-14 10:49 | NM_ITS ---
CLINICAL: Male, 77 years old. Infection. Gallstones abdominal pain. NUCLEAR BILIARY SCAN TECHNIQUE: Following the intravenous administration of 5.7 mCi of Tc Mebrofenin, hepatobiliary images was performed. Cholecystokinin (0.02 ug/kg) was then administered intravenously over a 30 minute period. COMPARISON STUDIES : NM - None. CR - none CT - CT of the abdomen and pelvis, September 13, 2017. MR - none US - gallbladder ultrasound, September 13, 2017. FINDINGS: Relatively prompt and homogeneous radiopharmaceutical concentration is noted by a normal sized liver. There are no parenchymal defects noted.. Gallbladder activity is identified at 30 minutes post radiopharmaceutical administration. Small bowel activity is identified at 30 minutes post radiopharmaceutical administration. Washout of the radiopharmaceutical by the hepatic parenchyma occurs in a normal fashion on qualitative inspection. The post Cholecystokinin gallbladder ejection fraction is calculated at 31 minutes following Cholecystokinin administration was noted to be 82% (normal greater than 35%). NM/Hepatobilliary Img w/Pharm Int IMPRESSION: Normal 99m TC Mebrofenin hepatobiliary imaging survey with Cholecystokinin. A gallbladder ejection fraction calculated to be greater than 35% following the administration of Cholecystokinin makes the probability of functional hepatobiliary disease (gallbladder and/or sphincter of Oddi dyskinesia) and/or organic hepatobiliary disease (chronic acalculous cholecystitis and/or cystic duct syndrome) to be low. (Tommy Maldonado et al, Journal of Nuclear Medicine 32:1695, 1991). Electronically Signed: Chuckie Fletcher DO at 14:45 EDT Tel [phone], Service support ,
--- NOTE | 2017-09-14 10:51 | PCM.PN.ID ---
Patient Problems: Active and Suspected Problems GERD (gastroesophageal reflux disease) (Acute) Bacteremia (Acute) Subjective: Feeling better, but did have three watery stools last night. No abd pain no fever. Did have one day of difficulty initiating urination, now improved. - Physical Exam General: Alert, Cooperative, No apparent distress Lungs: Clear to auscultation, Normal air movement Cardiovascular: Regular rate, Regular Rhythm Abdomen: Soft, Non Tender, Non-Distended Skin: No rashes Vital Signs Temp Pulse Resp BP Pulse Ox 98.1 F 66 18 153/81 H 96 09/14/17 09:00 09/14/17 10:06 09/14/17 09:00 09/14/17 09:00 09/14/17 09:00 Oxygen Flow Rate (L/min) 2 Oxygen Delivery Method Nasal Cannula Weight: 108.9 kg Body Mass Index (BMI) 37.5 Intake and Output for Last 24 Hours 09/12/17 09/13/17 09/14/17 23:59 23:59 23:59 Intake Total 685 / 685 2525.8 / 2525.8 723.9 / 723.9 Balance 685 / 685 2525.8 / 2525.8 723.9 / 723.9 Laboratory Tests Past 24 Hrs 09/14/17 09/14/17 09/14/17 05:00 05:00 05:00 WBC 5.9 RBC 4.08 L Hgb 11.9 L Hct 36.6 L MCV 89.7 MCH 29.2 MCHC 32.5 RDW 14.8 H RDW Differential 48.2 H Plt Count 145 L MPV 10.7 Immature Gran % (Auto) 0.200 Neut % (Auto) 56.0 Lymph % (Auto) 22.5 [place] % (Auto) 18.4 H Eos % (Auto) 2.6 Baso % (Auto) 0.3 Absolute Neuts (auto) 3.3 Absolute Lymphs (auto) 1.32 Total Counted Not Reportable PT 14.2 INR 1.1 APTT 41.5 H Sodium 143 Potassium 3.8 Chloride 110 H Carbon Dioxide 23.0 Anion Gap 10 BUN 15 Creatinine 1.20 Estim Creat Clear Calc 48.20 Est GFR (MDRD) Af Amer 75 Est GFR (MDRD) Non-Af 62 BUN/Creatinine Ratio 12.5 Glucose 108 H Calcium 7.9 L Magnesium 2.1 Medical Necessity - Tobacco Use Smoking Status: Former smoker Route of nutrition/ use of supplements: [] Nutritional Intake: [] IV Site: [] Summers Catheter: [] - Assessment/Plan Antibiotics: [] Assessment/Plan: [] Active and Suspected Problems GERD (gastroesophageal reflux disease) (Acute) Polymicrobial bacteremia causing lactic acidosis, shakes/chills - TERESA with no veg. Bcx with ecoli and alpha strep x2. Repeat bcx neg so far. CT showed possible chronic cholecystitis. Will order HIDA. BPH also on CT with possible associated infection/obstruction. Will consult urology for evaluation of prostate as source of bacteremia. Stop vanc. Continue zosyn. May be candidate for po abx at discharge. Will follow.
[2017-09-14 12:43] LABS: Bacteria 0 SEEN /hpf (None Seen); Mucous, Urine 0 SEEN /hpf (<or=2+); Red Blood Cells-Urine 0 SEEN /hpf (0-5); Squamous Epithelial Cells - UA 0 SEEN /hpf (0-5); White Blood Cells 0 SEEN /hpf (0-5)
[2017-09-14 12:45] LABS: Color, Urine Yellow (Yellow); Glucose, Dipstick Normal (Normal); Ketone-Dipstick Negative (Negative); Leukocyte Esterase-Dipstick Negative /ul (Negative); Nitrite-Dipstick Negative (Negative); Occult Blood-Urine Negative /ul (Negative); Protein-Dipstick Negative (Negative); Urine Bilirubin Dipstick Negative (Negative); Urine Clarity Clear (Clear); Urine Urobilinogen Normal (Normal)
--- NOTE | 2017-09-14 14:17 | PN_ITS ---
Patient Problems: Active and Suspected Problems GERD (gastroesophageal reflux disease) (Acute) Bacteremia (Acute) Subjective: He did have some abdominal discomfort the night prior to presentation but this was relieved by one dose of prilosec. He has no nausea, vomiting, or diarrhea. He has no abdominal pain. He has no cough, SOB, chest pain. He currently denies fevers or chills. He has trouble emptying his bladder but no dysuria and a negative UA. He has no open wounds. He did have oral surgery 2 weeks prior - left molars removed. No facial pain. No discharge. No recent illness or sick contacts. No implants in his body. No back pain. - Physical Exam General: Alert, Oriented x3, Cooperative HEENT: Atraumatic, PERRLA, EOMI, Normocephalic Neck: Supple, No JVD, Negative Carotid Bruits Lungs: Clear to auscultation, Normal air movement Cardiovascular: Regular rate, No murmurs Abdomen: Bowel Sounds Present, Soft, Non Tender, Obese Extremities: No edema, Capillary Refill Less than 3 Seconds Skin: No rashes, No breakdown Musculoskeletal: No Tenderness to Palpation of Joints or Extremities Neurological: Cranial nerves II-XII grossly intact Psych/Mental Status: Normal Affect, Appropriate, Alert and oriented to time, place, person, mood and affect Vital Signs Temp Pulse Resp BP Pulse Ox 98.1 F 65 18 153/81 H 96 09/14/17 09:00 09/14/17 11:29 09/14/17 09:00 09/14/17 09:00 09/14/17 09:00 Oxygen Flow Rate (L/min) 2 Oxygen Delivery Method Nasal Cannula Weight: 108.9 kg Body Mass Index (BMI) 37.5 Intake and Output for Last 24 Hours 09/12/17 09/13/17 09/14/17 23:59 23:59 23:59 Intake Total 685 / 685 2525.8 / 2525.8 963.9 / 963.9 Balance 685 / 685 2525.8 / 2525.8 963.9 / 963.9 Laboratory Tests Past 24 Hrs 09/14/17 09/14/17 09/14/17 05:00 05:00 05:00 WBC 5.9 RBC 4.08 L Hgb 11.9 L Hct 36.6 L MCV 89.7 MCH 29.2 MCHC 32.5 RDW 14.8 H RDW Differential 48.2 H Plt Count 145 L MPV 10.7 Immature Gran % (Auto) 0.200 Neut % (Auto) 56.0 Lymph % (Auto) 22.5 [place] % (Auto) 18.4 H Eos % (Auto) 2.6 Baso % (Auto) 0.3 Absolute Neuts (auto) 3.3 Absolute Lymphs (auto) 1.32 Total Counted Not Reportable PT 14.2 INR 1.1 APTT 41.5 H Sodium 143 Potassium 3.8 Chloride 110 H Carbon Dioxide 23.0 Anion Gap 10 BUN 15 Creatinine 1.20 Estim Creat Clear Calc 48.20 Est GFR (MDRD) Af Amer 75 Est GFR (MDRD) Non-Af 62 BUN/Creatinine Ratio 12.5 Glucose 108 H Calcium 7.9 L Magnesium 2.1 Urine Color Urine Clarity Urine pH Ur Specific [place] Urine Protein Urine Glucose (UA) Urine Ketones Urine Occult Blood Urine Nitrite Urine Bilirubin Urine Urobilinogen Ur Leukocyte Esterase Urine RBC Urine WBC Ur Squamous Epith Cells Urine Bacteria Urine Mucus 09/14/17 12:25 WBC RBC Hgb Hct MCV MCH MCHC RDW RDW Differential Plt Count MPV Immature Gran % (Auto) Neut % (Auto) Lymph % (Auto) [place] % (Auto) Eos % (Auto) Baso % (Auto) Absolute Neuts (auto) Absolute Lymphs (auto) Total Counted PT INR APTT Sodium Potassium Chloride Carbon Dioxide Anion Gap BUN Creatinine Estim Creat Clear Calc Est GFR (MDRD) Af Amer Est GFR (MDRD) Non-Af BUN/Creatinine Ratio Glucose Calcium Magnesium Urine Color Yellow Urine Clarity Clear Urine pH 6.0 Ur Specific [place] 1.010 Urine Protein Negative Urine Glucose (UA) Normal Urine Ketones Negative Urine Occult Blood Negative Urine Nitrite Negative Urine Bilirubin Negative Urine Urobilinogen Normal Ur Leukocyte Esterase Negative Urine RBC 0 SEEN Urine WBC 0 SEEN Ur Squamous Epith Cells 0 SEEN Urine Bacteria 0 SEEN Urine Mucus 0 SEEN Medical Necessity - Tobacco Use Smoking Status: Former smoker Assessment/Plan All Active Problems GERD (gastroesophageal reflux disease) (Acute) Bacteremia (Acute) 1. Bacteremia of unclear source - strep species and e coli. Final strep differentiation will be available tomorrow as per discussion with micro. ID is following. Conitnue Zosyn. Strep could be from oral source from surgery, but his sockets do not appear inflamed nor does he have pain or indication of an abscess. UA neg. HIDA scan pending but negative bose sign. Urology consult for enlarged prostate ? source E coli. 2. Acute hypoxic repiratory failure - 2/2 bronchitis - resolved. No respiratory complaints. Not on O2 3. DOMENIC - resolved 4. ELIOT - CPAP qhs 5. HTN - stable 6. BPH - proscar, urology c/s. DVT ppx: lovenox DC planning: repeat cultures pending, culture and sens pending. await urology c/ s, HIDA scan. This patient was seen by Danial Bradley PA-C under the supervision of Doctor Tobias.
[2017-09-14] MEDS: Doxazosin 1 MG Tablet 2 MG PO (21:38)
[2017-09-15] VITALS (8 sets, daily range): BP systolic 131–152; BP diastolic 69–87; PULSE 53–129; RESP 16–18; TEMP 36.7–36.9; O2SAT 94–97
[2017-09-15] MEDS: Piperacil/Tazobactam 3.375 GM/50 ML ML IV ×2 (05:19→14:43)
[2017-09-15 05:22] LABS: Hematocrit 37.4 % (40-54); Hemoglobin 12.3 g/dl (13.0-16.5); Mean Corp Hgb Conc 32.9 g/gl (32-36); Mean Corpuscular Hgb 29.4 pg (27.0-32.0); Mean Corpuscular Volume 89.5 fL (80-94); Mean Platelet Vol. 10.2 fl (6.2-12.0); Platelet Count 140 K/mm3 (150-450); RBC Distribution Width CV 14.7 % (11.6-14.6); RBC Distribution Width SD 47.6 fl (35.1-43.9); Red Blood Count 4.18 M/mm3 (4.6-6.2); White Blood Count 4.7 K/mm3 (4.4-11.0)
[2017-09-15 05:25] LABS: Scan Indicated on CBC? Y/N NO
[2017-09-15 05:44] LABS: Anion Gap 7 (5-15); BUN 14 mg/dL (7-18); BUN/Creat Ratio 11.1 RATIO (10-20); Calcium,Total 8.3 mg/dL (8.5-10.1); Chloride 110 mmol/L (98-107); Creatinine, Serum 1.26 mg/dL (0.70-1.30); EST Glomerular Filtration Rate 59 mL/min (>60); Est Glom Filt Rate - Afr Amer 71 mL/min (>60); Glucose 96 mg/dL (74-106); Potassium 3.9 mmol/L (3.5-5.1); Sodium Level 143 mmol/L (136-145)
--- NOTE | 2017-09-15 07:18 | CON.PCM_ITS ---
Reason for Consult Date of Consultation: 09/15/17 Reason for Consultation: BPH and obstruction History of Present Illness: The patient is a 77 year old male with multiple medical problems who is from out of town he was here visiting ended up being admitted to the hospital CAT scan was done demonstrated a very large prostate he does admit to having difficulties with emptying his bladder having to double void having to get up at night to urinate, weak stream, difficulty emptying his bladder completely, he is been taken finasteride, we could add an alpha-reginald like Flomax 0.4 mg at bedtime. He wants to establish care with the urologist but I recommended he do this with a local urologist since he is from out of town. Past Medical History Past Medical History (Chronic Problems): Chronic Problems BPH (benign prostatic hyperplasia) (Chronic) HTN (hypertension) (Chronic) Arrhythmia (Chronic) Allergies bee pollen Allergy (Verified 09/12/17 14:14) Anaphylaxis Home Medications: Ambulatory Orders Medication Instructions Recorded Aspirin [Aspirin, Baby] 81 mg PO DAILY@0800 09/12/17 Doxazosin Mesylate [Cardura] 2 mg PO DAILY 09/12/17 Escitalopram Oxalate [Lexapro] 5 mg PO DAILY 09/12/17 Finasteride [Proscar] 5 mg PO DAILY 09/12/17 Glucosamine/MSM/Chondroitin A 1 each PO DAILY 09/12/17 [Glucosamine Chondroit MSM Tab] Metoprolol Tartrate [Lopressor 12.5 mg PO BID 09/12/17 (Beta Reginald)] Niacinamide [Niacin] 1,000 mg PO DAILY 09/12/17 Olmesartan Medoxomil [Benicar] 40 mg PO DAILY 09/12/17 Omeprazole Magnesium [Prilosec Otc] 20 mg PO DAILY 09/12/17 Surgical History: noncontributory Psychiatric History: No pertinent psych hx Lives: Spouse/ Significant Other Smoking Status: Never smoker Tobacco Use: Non-smoker Alcohol: None Drugs: None Review of Systems Constitutional: Denies: Chills, Fever, Weight Change HEENT: Denies: Head Aches, Sinus Congestion, Sinus Drainage Cardiovascular: Denies: Chest Pain, Palpitations Respiratory: Denies: Cough, Shortness of breath at rest, Sputum production Gastrointestinal: Denies: Abdominal Pain, Nausea, Vomiting Genitourinary: Denies: Dysuria Musculoskeletal: Denies: Joint Pain, Joint Tenderness Skin: Denies: Rash, Wounds Neurological: Denies: Numbness, Tingling, Focal weakness Psychiatric: Denies: Anxiety, Depression, Homicidal Ideations, Suicidal Ideations Hematologic/ Lymphatic: Denies: Easy Bruising, Easy Bleeding Physical Exam - Physical Exam Vital Signs Temp 98.4 F 09/15/17 02:50 Pulse 53 L 09/15/17 03:00 Resp 18 09/15/17 02:50 BP 152/80 H 09/15/17 02:50 Pulse Ox 94 09/15/17 02:50 Intake & Output 09/13/17 09/14/17 09/15/17 23:59 23:59 23:59 Intake Total 2525.8 / 2525.8 1356.7 / 1356.7 58 58 Balance 2525.8 / 2525.8 1356.7 / 1356.7 Weight: 108.9 kg Intake: Oral 720 / 720 480 / 480 IV fluid/meds 1805.8 / 1805.8 876.7 / 876.7 Other: Number of Voids 3 2 2 General: Alert, Oriented x3 HEENT: Atraumatic Oral: Moist Mucosa Neck: Supple Lungs: Normal air movement Cardiovascular: Regular rate Abdomen: Soft Microbiology Past 72 Hours 09/14/17 12:30 C. difficile DNA Amplification - Final Stool Laboratory Tests Past 24 Hrs 09/14/17 09/15/17 09/15/17 12:25 05:00 05:00 WBC 4.7 RBC 4.18 L Hgb 12.3 L Hct 37.4 L MCV 89.5 MCH 29.4 MCHC 32.9 RDW 14.7 H RDW Differential 47.6 H Plt Count 140 L MPV 10.2 Sodium 143 Potassium 3.9 Chloride 110 H Carbon Dioxide 26.0 Anion Gap 7 BUN 14 Creatinine 1.26 Estim Creat Clear Calc 45.90 Est GFR (MDRD) Af Amer 71 Est GFR (MDRD) Non-Af 59 L BUN/Creatinine Ratio 11.1 Glucose 96 Calcium 8.3 L Urine Color Yellow Urine Clarity Clear Urine pH 6.0 Ur Specific [place] 1.010 Urine Protein Negative Urine Glucose (UA) Normal Urine Ketones Negative Urine Occult Blood Negative Urine Nitrite Negative Urine Bilirubin Negative Urine Urobilinogen Normal Ur Leukocyte Esterase Negative Urine RBC 0 SEEN Urine WBC 0 SEEN Ur Squamous Epith Cells 0 SEEN Urine Bacteria 0 SEEN Urine Mucus 0 SEEN Assessment/Plan All Active Problems GERD (gastroesophageal reflux disease) (Acute) Bacteremia (Acute) 77-year-old male with BPH and obstruction he is already taking finasteride 5 mg daily continue with this, he is on doxazosin very low-dose 2 mg daily we could try adding tamsulosin 0.4 mg nightly to see if this will help with his urinary symptoms. If his symptoms persist then intervention such as a TURP or some sort of prostate surgery may be necessary however I would hold off on this for now, recommend he see a urologist when he returns to his home in [place], he states he very has a urologist in the area but needs to get reestablished. please call me with any questions.
[2017-09-15] MEDS: Losartan Potassium 100 MG Tablet PO (08:40)
[2017-09-15] MEDS: Escitalopram Oxalate 10 MG Tablet PO (08:40)
[2017-09-15] MEDS: Aspirin 81 MG TAB.CHEW PO (08:40)
[2017-09-15] MEDS: Metoprolol Tartrate 25 MG Tablet 12.5 MG PO (08:40)
[2017-09-15] MEDS: Pantoprazole Sodium 20 MG Tablet PO (08:42)
[2017-09-15] MEDS: Finasteride 5 MG Tablet PO (08:42)
--- NOTE | 2017-09-15 14:03 | PN.ID_ITS ---
Patient Problems: Active and Suspected Problems GERD (gastroesophageal reflux disease) (Acute) Bacteremia (Acute) Subjective: Feeling good, minimal loose stool, no fever. - Physical Exam General: Alert, Cooperative, No apparent distress Lungs: Clear to auscultation, Normal air movement Cardiovascular: Regular rate, Regular Rhythm Abdomen: Soft, Non Tender, Non-Distended Skin: No rashes Vital Signs Temp Pulse Resp BP Pulse Ox 98.0 F 93 16 137/87 H 97 09/15/17 08:44 09/15/17 11:03 09/15/17 08:44 09/15/17 08:44 09/15/17 08:44 Oxygen Flow Rate (L/min) 2 Oxygen Delivery Method Room Air Weight: 108.9 kg Body Mass Index (BMI) 37.5 Intake and Output for Last 24 Hours 09/13/17 09/14/17 09/15/17 23:59 23:59 23:59 Intake Total 2525.8 / 2525.8 1356.7 / 1356.7 678 / 678 Balance 2525.8 / 2525.8 1356.7 / 1356.7 678 / 678 Microbiology Past 72 Hours 09/13/17 12:55 Blood Culture - Preliminary Blood Culture (Wb) - Left Hand No growth in 48 hours. 09/14/17 12:25 Urine Culture - Preliminary Urine, Clean Catch Culture exhibits no growth. 09/14/17 12:30 C. difficile DNA Amplification - Final Stool Laboratory Tests Past 24 Hrs 09/15/17 09/15/17 05:00 05:00 WBC 4.7 RBC 4.18 L Hgb 12.3 L Hct 37.4 L MCV 89.5 MCH 29.4 MCHC 32.9 RDW 14.7 H RDW Differential 47.6 H Plt Count 140 L MPV 10.2 Sodium 143 Potassium 3.9 Chloride 110 H Carbon Dioxide 26.0 Anion Gap 7 BUN 14 Creatinine 1.26 Estim Creat Clear Calc 45.90 Est GFR (MDRD) Af Amer 71 Est GFR (MDRD) Non-Af 59 L BUN/Creatinine Ratio 11.1 Glucose 96 Calcium 8.3 L Medical Necessity - Tobacco Use Smoking Status: Never smoker Tobacco Use: Non-smoker Route of nutrition/ use of supplements: [] Nutritional Intake: [] IV Site: [] Summers Catheter: [] - Assessment/Plan Antibiotics: [] Assessment/Plan: [] Active and Suspected Problems GERD (gastroesophageal reflux disease) (Acute) Polymicrobial bacteremia causing lactic acidosis, shakes/chills - TERESA with no veg. Bcx with ecoli and alpha strep x2 including gallolyticus. Repeat bcx neg so far. HIDA with low probability of cholecystitis. Seen by urology. Ok for d /c home on po levaquin and po flagyl for 14 day course, start date is bcx clearance 09/13. Counseled re:potential side effect and gave my card. Due to growth of S. bovis species, he will need outpatient colonoscopy to eval for colon cancer in the near future. Will follow. D/w primary team.
--- NOTE | 2017-09-15 15:10 | PCM.DC ---
- Discharge Diagnoses Current Active Problems: Current Active and Chronic Problems BPH (benign prostatic hyperplasia) (Chronic) HTN (hypertension) (Chronic) Arrhythmia (Chronic) GERD (gastroesophageal reflux disease) (Acute) Bacteremia (Acute) You will use the following diet at home:: Cardiac Your food should be the consistency of: Regular Your liquids should be the consistency of: Regular/Thin Discharge Activity: Return to Normal Activity Additional Instructions: You need to have a colonoscopy as an outpatient, discuss a referral for this with your PCP. Allergies/Adverse Reactions: Allergies bee pollen Allergy (Verified 09/12/17 14:14) Anaphylaxis Medications to take at Discharge Aspirin [Aspirin, Baby] 81 mg PO DAILY@0800 09/12/17 Escitalopram Oxalate [Lexapro] 5 mg PO DAILY 09/12/17 Finasteride [Proscar] 5 mg PO DAILY 09/12/17 Glucosamine/MSM/Chondroitin A [Glucosamine Chondroit MSM Tab] 1 each PO DAILY 09/12/17 Metoprolol Tartrate [Lopressor (beta diane)] 12.5 mg PO BID 09/12/17 Niacinamide [Niacin] 1,000 mg PO DAILY 09/12/17 Olmesartan Medoxomil [Benicar] 40 mg PO DAILY 09/12/17 Omeprazole Magnesium [Prilosec Otc] 20 mg PO DAILY 09/12/17 Doxazosin Mesylate [Cardura] 4 mg PO QHS #30 tab 09/15/17 Levofloxacin [Levaquin] 500 mg PO DAILY #12 tab 09/15/17 Metronidazole [Flagyl] 500 mg PO TID #36 tab 09/15/17 The following prescriptions were given: Doxazosin Mesylate [Cardura] 4 mg PO QHS #30 tab Levofloxacin [Levaquin] 500 mg PO DAILY #12 tab Metronidazole [Flagyl] 500 mg PO TID #36 tab Primary Care Physician: Lisa Tian,Out of [Primary Care Provider] - Please follow up with your Primary Care Physician in: 1-2 weeks Proposed Discharge Date: 09/15/17
--- NOTE | 2017-09-15 15:13 | PCM.DC.SUM ---
Discharge Date and Diagnosis - Problem List Patient Problems: Active and Suspected Problems GERD (gastroesophageal reflux disease) (Acute) Bacteremia (Acute) Date of Admission: 09/12/17 Date of Discharge: 09/15/17 - Primary Discharge Diagnosis Active and Suspected Problems Bacteremia unclear etiology - e coli, strep gallolyticus (bovus) Acute bronchitis ruled out acute hypoxic respiratory failure ruled out sepsis ruled out BPH ELIOT HTN - Secondary Discharge Diagnosis Chronic Problems BPH (benign prostatic hyperplasia) (Chronic) HTN (hypertension) (Chronic) Arrhythmia (Chronic) Hospital Course and Treatment Imaging Results: RAD/Chest PA and Lateral IMPRESSION: No acute thoracic pathology. CT/Chest WITH Contrast IMPRESSION: There is chronic obstructive pulmonary disease. There is heterogeneous enhancement of the thyroid gland. Echo: Interpretation Summary Normal LV size. Mild concentric left ventricular hypertrophy. Left ventricular systolic function is normal. The estimated ejection fraction is 55 %. Transmitral diastolic flow velocities suggest mild (stage 1) diastolic dysfunction (reversed pattern). Mildly dilated aortic root. Pulmonary artery systolic pressure is 44 mmHg. TERESA: Interpretation Summary Left ventricular systolic function is normal. The estimated ejection fraction is 55 %. The left atrium is mildly enlarged. There is no sponatenous contrast in the left atrium. No thrombus is detected in the left atrial appendage. 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 Moderate (2+) eccentric mitral valve insufficiency. Trivial tricuspid valve insufficiency. Mild diffuse aortic valve thickening. Mild focal aortic valve calcification. Trivial pulmonic valve insufficiency. Faintly positive agitated saline contrast study s/p Valsalva for a right to left interatrial shunt c/w a very small PFO. Mild atherosclerosis of the aortic arch. Mild atherosclerosis of the descending aorta. US/Gallbladder IMPRESSION: Fatty infiltration of the liver. Small hepatic cyst. Multiple gallstones and sludge in the gallbladder lumen. NM/Hepatobilliary Img w/Pharm Int IMPRESSION: Normal 99m TC Mebrofenin hepatobiliary imaging survey with Cholecystokinin. A gallbladder ejection fraction calculated to be greater than 35% following the administration of Cholecystokinin makes the probability of functional hepatobiliary disease (gallbladder and/or sphincter of Oddi dyskinesia) and/or organic hepatobiliary disease (chronic acalculous cholecystitis and/or cystic duct syndrome) to be low. (Tommy Mitchell al, Journal of Nuclear Medicine 32:1695, 1990). Consults: Infectious disease - [facility] - Chemo Operations: None Procedures: 2-D Echocardiogram, Transesophageal Echo, - - HIDA scan Summary of Care Provided: Physical exam on day of discharge: General: Resting comfortably NAD Psych: A/Ox3 normal affect HEENT: PEARRLA AT NC Neck: Supple NT CV: RRR no m/t/r/g/h Resp: CTA Abd: [id number] Soft NT no guarding or rigidity Ext: DP2+= no edema Skin: W/D normal turgor Lymph/Heme: No active bleeding or adenopathy Neuro: CN2-12 intact Hospital course: The patient is a 77 year old M with a medical hx of BPH, HTN, GERD, unspecified arrhythmia, who presented to the ER with fevers and shakes. He is from out of town and was visiting family, and developed this and some mild abdominal discomfort while here. He was found to have a low pulse ox but was stable on 3 lpm nc. CXR was negative. Lactate was mildly elevated. He had no symptoms other than one day of mild diffuse abdominal discomfort and a few days of chills. He was placed on levaquin and admitted to the hospital. Blood cultures were obtained and grew 2 strep species including Strep bovus which is associated with colon cancer. ID was consulted. Repeat cultures were obtained. He was changed to zosyn. CT chest showed COPD. He underwent CT abdomen which had small hiatal hernia, hepatic steatosis, enlarged prostate, diverticulosis. An abdominal ultrasound was done showing fatty liver, small hepatic cyst, gallstones and sludge. He underwent a HIDA scan which was negative. Urology was consulted about his prostate, however he had no pain. Rectal exam did not reveal tenderness. UA and urine cultures were negative. C diff was negative. He had recent oral surgery but no pain there, or signs of abscess/infection. Repeat cultures were negative. ID recommended 12 more days of levaquin and flagyl. ID also recommended that he have a colonoscopy as strep bovus occurs with colorectal cancer. He was discharged home in stable condition. He will follow up with his PCP in 1-2 weeks. This patient was seen by Danial Bradley PA-C under the supervision of Doctor Micheline. [] Discharge Diet: Low fat/ Low Cholesterol, 2000 mg Sodium Diet Discharge Activity: Return to Normal Activity Home Medications: Medications to take at Discharge Aspirin [Aspirin, Baby] 81 mg PO DAILY@0800 09/12/17 Escitalopram Oxalate [Lexapro] 5 mg PO DAILY 09/12/17 Finasteride [Proscar] 5 mg PO DAILY 09/12/17 Glucosamine/MSM/Chondroitin A [Glucosamine Chondroit MSM Tab] 1 each PO DAILY 09/12/17 Metoprolol Tartrate [Lopressor (beta diane)] 12.5 mg PO BID 09/12/17 Niacinamide [Niacin] 1,000 mg PO DAILY 09/12/17 Olmesartan Medoxomil [Benicar] 40 mg PO DAILY 09/12/17 Omeprazole Magnesium [Prilosec Otc] 20 mg PO DAILY 09/12/17 Doxazosin Mesylate [Cardura] 4 mg PO QHS #30 tab 09/15/17 Levofloxacin [Levaquin] 500 mg PO DAILY #12 tab 09/15/17 Metronidazole [Flagyl] 500 mg PO TID #36 tab 09/15/17 Following Prescrptions Were Given to Patient: Doxazosin Mesylate [Cardura] 4 mg PO QHS #30 tab Levofloxacin [Levaquin] 500 mg PO DAILY #12 tab Metronidazole [Flagyl] 500 mg PO TID #36 tab Primary Care Physician: Lisa Doctor,Out of [Primary Care Provider] - Please follow up with your Primary Care Physician in: 1-2 weeks Additional Instructions: outpatient colonoscopy Disposition: Home Minutes spent on discharge:: 40 Patient Condition:: Stable Medical Necessity - Tobacco Use Smoking Status: Never smoker Tobacco Use: Non-smoker Meaningful Use Info Meaningful Use Diagnoses (Choose all that apply): None applicable
--- NOTE | 2017-09-15 15:27 | DS.PCM_ITS ---
Discharge Date and Diagnosis - Problem List Patient Problems: Active and Suspected Problems GERD (gastroesophageal reflux disease) (Acute) Bacteremia (Acute) Date of Admission: 09/12/17 Date of Discharge: 09/15/17 - Primary Discharge Diagnosis Active and Suspected Problems Bacteremia unclear etiology - e coli, strep gallolyticus (bovus) Acute bronchitis ruled out acute hypoxic respiratory failure ruled out sepsis ruled out BPH ELIOT HTN - Secondary Discharge Diagnosis Chronic Problems BPH (benign prostatic hyperplasia) (Chronic) HTN (hypertension) (Chronic) Arrhythmia (Chronic) Hospital Course and Treatment Imaging Results: RAD/Chest PA and Lateral IMPRESSION: No acute thoracic pathology. CT/Chest WITH Contrast IMPRESSION: There is chronic obstructive pulmonary disease. There is heterogeneous enhancement of the thyroid gland. Echo: Interpretation Summary Normal LV size. Mild concentric left ventricular hypertrophy. Left ventricular systolic function is normal. The estimated ejection fraction is 55 %. Transmitral diastolic flow velocities suggest mild (stage 1) diastolic dysfunction (reversed pattern). Mildly dilated aortic root. Pulmonary artery systolic pressure is 44 mmHg. TERESA: Interpretation Summary Left ventricular systolic function is normal. The estimated ejection fraction is 55 %. The left atrium is mildly enlarged. There is no sponatenous contrast in the left atrium. No thrombus is detected in the left atrial appendage. 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 Moderate (2+) eccentric mitral valve insufficiency. Trivial tricuspid valve insufficiency. Mild diffuse aortic valve thickening. Mild focal aortic valve calcification. Trivial pulmonic valve insufficiency. Faintly positive agitated saline contrast study s/p Valsalva for a right to left interatrial shunt c/w a very small PFO. Mild atherosclerosis of the aortic arch. Mild atherosclerosis of the descending aorta. US/Gallbladder IMPRESSION: Fatty infiltration of the liver. Small hepatic cyst. Multiple gallstones and sludge in the gallbladder lumen. NM/Hepatobilliary Img w/Pharm Int IMPRESSION: Normal 99m TC Mebrofenin hepatobiliary imaging survey with Cholecystokinin. A gallbladder ejection fraction calculated to be greater than 35% following the administration of Cholecystokinin makes the probability of functional hepatobiliary disease (gallbladder and/or sphincter of Oddi dyskinesia) and/or organic hepatobiliary disease (chronic acalculous cholecystitis and/or cystic duct syndrome) to be low. (Tommy Mitchell al, Journal of Nuclear Medicine 32:1695, 1990). Consults: Infectious disease - [facility] - Chemo Operations: None Procedures: 2-D Echocardiogram, Transesophageal Echo, - - HIDA scan Summary of Care Provided: Physical exam on day of discharge: General: Resting comfortably NAD Psych: A/Ox3 normal affect HEENT: PEARRLA AT NC Neck: Supple NT CV: RRR no m/t/r/g/h Resp: CTA Abd: [id number] Soft NT no guarding or rigidity Ext: DP2+= no edema Skin: W/D normal turgor Lymph/Heme: No active bleeding or adenopathy Neuro: CN2-12 intact Hospital course: The patient is a 77 year old M with a medical hx of BPH, HTN, GERD, unspecified arrhythmia, who presented to the ER with fevers and shakes. He is from out of town and was visiting family, and developed this and some mild abdominal discomfort while here. He was found to have a low pulse ox but was stable on 3 lpm nc. CXR was negative. Lactate was mildly elevated. He had no symptoms other than one day of mild diffuse abdominal discomfort and a few days of chills. He was placed on levaquin and admitted to the hospital. Blood cultures were obtained and grew 2 strep species including Strep bovus which is associated with colon cancer. ID was consulted. Repeat cultures were obtained. He was changed to zosyn. CT chest showed COPD. He underwent CT abdomen which had small hiatal hernia, hepatic steatosis, enlarged prostate, diverticulosis. An abdominal ultrasound was done showing fatty liver, small hepatic cyst, gallstones and sludge. He underwent a HIDA scan which was negative. Urology was consulted about his prostate, however he had no pain. Rectal exam did not reveal tenderness. UA and urine cultures were negative. C diff was negative. He had recent oral surgery but no pain there, or signs of abscess/infection. Repeat cultures were negative. ID recommended 12 more days of levaquin and flagyl. ID also recommended that he have a colonoscopy as strep bovus occurs with colorectal cancer. He was discharged home in stable condition. He will follow up with his PCP in 1-2 weeks. This patient was seen by Danial Bradley PA-C under the supervision of Doctor Micheline. [] Discharge Diet: Low fat/ Low Cholesterol, 2000 mg Sodium Diet Discharge Activity: Return to Normal Activity Home Medications: Medications to take at Discharge Aspirin [Aspirin, Baby] 81 mg PO DAILY@0800 09/12/17 Escitalopram Oxalate [Lexapro] 5 mg PO DAILY 09/12/17 Finasteride [Proscar] 5 mg PO DAILY 09/12/17 Glucosamine/MSM/Chondroitin A [Glucosamine Chondroit MSM Tab] 1 each PO DAILY Metoprolol Tartrate [Lopressor (beta diane)] 12.5 mg PO BID 09/12/17 Niacinamide [Niacin] 1,000 mg PO DAILY 09/12/17 Olmesartan Medoxomil [Benicar] 40 mg PO DAILY 09/12/17 Omeprazole Magnesium [Prilosec Otc] 20 mg PO DAILY 09/12/17 Doxazosin Mesylate [Cardura] 4 mg PO QHS #30 tab 09/15/17 Levofloxacin [Levaquin] 500 mg PO DAILY #12 tab 09/15/17 Metronidazole [Flagyl] 500 mg PO TID #36 tab 09/15/17 Following Prescrptions Were Given to Patient: Doxazosin Mesylate [Cardura] 4 mg PO QHS #30 tab Levofloxacin [Levaquin] 500 mg PO DAILY #12 tab Metronidazole [Flagyl] 500 mg PO TID #36 tab Primary Care Physician: Lisa Doctor,Out of [Primary Care Provider] - Please follow up with your Primary Care Physician in: 1-2 weeks Additional Instructions: outpatient colonoscopy Disposition: Home Minutes spent on discharge:: 40 Patient Condition:: Stable Medical Necessity - Tobacco Use Smoking Status: Never smoker Tobacco Use: Non-smoker Meaningful Use Info Meaningful Use Diagnoses (Choose all that apply): None applicable
== END 2017-09-15 16:48 | disposition home or self-care (01) | DRG 872 ==
LOC: ED 16:49 → PCU 17:52
PROVIDERS: Internal Medicine; Internal Medicine Infectious Disease; Admitting Provider Internal Medicine; Emergency Provider Emergency Medicine; Visit Provider Internal Medicine
DX: R78.81 Bacteremia (principal); E87.2 Acidosis; N13.8 Other obstructive and reflux uropathy; G47.33 Obstructive sleep apnea (adult) (pediatric); I10 Essential (primary) hypertension; B96.20 Unspecified Escherichia coli [E. coli] as the cause of diseases classified elsewhere; K21.9 Gastro-esophageal reflux disease without esophagitis; B95.4 Other streptococcus as the cause of diseases classified elsewhere; N40.1 Benign prostatic hyperplasia with lower urinary tract symptoms; R09.02 Hypoxemia
CPT/HCPCS: 36415; 71046; 71260; 74177; 76705; 78227; 80048; 80053; 81001; 83605; 83735; 85025; 85027; 85610; 85730; 87040; 87077; 87086; 87149; 87186; 87493; 93005; 93306; 93312; 93320; 93325; 99283; A9537; J7030; J7040; Q9967; A4216; J2805